=== PATIENT | male | born 1965 | race Caucasian/White ===

== ENCOUNTER 2022-03-08 20:23 | Emergency (ER) | payer OTHER ==
[~2022-03-08] VITALS: Ht 172.7 cm; Wt 90.7 kg
--- NOTE | 2022-03-08 20:40 | NUR ---
TO ER BED 3. [id number] FROM HOME C/O PALPITATIONS X 1 HR AFTER . PT STATES "CHEST FEELS LIKE PRESSURE". HX AFIB. PT IS ALERT AND ORIENTED. RR EVEN AND NON LABORED. CONNECTED TO MONITOR. AWAITING MD BILLINGS
--- NOTE | 2022-03-08 20:55 | NUR ---
BLOOD COLLECTED AND SENT TO LAB
[2022-03-08 21:10] LABS: BASOPHILS # (AUTO) 0.1 K/uL (0.0-0.2); EOSINOPHILS % (AUTO) 3.5 % (0.0-6.0); HEMATOCRIT 43 % (39-51); HEMOGLOBIN 14.5 g/dL (13.5-17.5); LYMPHOCYTES # (AUTO) 1.8 K/uL (0.8-4.8); LYMPHOCYTES % (AUTO) 31.1 % (20.0-44.0); MEAN CORPUSCULAR HGB CONC 34 g/dl (31.0-36.0); MEAN CORPUSCULAR VOLUME 83 fL (80-96); MONOCYTES # (AUTO) 0.4 K/uL (0.1-1.30); MONOCYTES % (AUTO) 7.5 % (2.0-12.0); NEUTROPHILS # (AUTO) 3.2 K/uL (1.8-8.9); NEUTROPHILS % (AUTO) 56.9 % (43.0-81.0); PLATELET COUNT (AUTO) 209 K/uL (150-450); WHITE BLOOD COUNT (AUTO) 5.7 K/uL (4.3-11.0)
--- NOTE | 2022-03-08 21:12 | NUR ---
XRAY AT BEDSIDE
[2022-03-08 21:23] LABS: CARBON DIOXIDE 25 mmol/L (21-32); CHLORIDE 103 mmol/L (98-107); GLUCOSE 196 mg/dL (74-106); POTASSIUM 3.4 mmol/L (3.5-5.1); SODIUM SERUM 137 mmol/L (136-145); UREA NITROGEN, BLOOD 10 mg/dL (7-18)
[2022-03-08] MEDS ORDERED: DILTIAZEM HCL 50 MG IV ONE (21:26)
[2022-03-08] MEDS ORDERED: DILTIAZEM HCL 50 MG IV IV ONE (21:30)
--- NOTE | 2022-03-08 21:44 | NUR ---
IV LINE ESTABLISHED, LHAND 22G
[2022-03-09 00:09] VITALS: BP 140/97
--- NOTE | 2022-03-09 00:09 | NUR ---
IV removed. Catheter intact and site benign. Pressure and 4x4 applied to site. No bleeding noted.
--- NOTE | 2022-03-09 00:09 | NUR ---
Patient discharged to home in stable condition. Written and verbal after care instructions given. Patient verbalizes understanding of instruction.
== END 2022-03-09 00:10 | disposition home or self-care (01) ==
LOC: ER 20:30
DX: I48.91 Unspecified atrial fibrillation (principal); I10 Essential (primary) hypertension; Z88.8 Allergy status to other drugs, medicaments and biological substances
CPT/HCPCS: 99284; 96374; 71045; 93005; 85025; 80048; 36415; 84484 ×2; 83880; J3490

== ENCOUNTER 2022-03-12 16:21 | Emergency (ER) | payer OTHER ==
[~2022-03-12] VITALS: Ht 175.3 cm; Wt 90.7 kg
--- NOTE | 2022-03-12 16:47 | NUR ---
[facility] from [facility], c/o chest discomfort 3 hrs POLICY LOAN CALCULATOR 6/10 pain scale ASA 325 mg and 1 spray nitro 0.4 mg. PT IS A&OX4, HR IN THE 130. PT PLACED ON BEDSIDE MONITOR.
[2022-03-12] MEDS ORDERED: DILTIAZEM HCL 50 MG IV IV ONE (17:00)
[2022-03-12 17:06] LABS: BASOPHILS % (AUTO) 0.7 % (0.0-2.0); EOSINOPHILS % (AUTO) 1.6 % (0.0-6.0); HEMATOCRIT 41 % (39-51); HEMOGLOBIN 13.9 g/dL (13.5-17.5); MEAN CORPUSCULAR HGB CONC 34 g/dl (31.0-36.0); MEAN CORPUSCULAR VOLUME 82 fL (80-96); MONOCYTES # (AUTO) 0.4 K/uL (0.1-1.30); MONOCYTES % (AUTO) 8.1 % (2.0-12.0); NEUTROPHILS # (AUTO) 3.6 K/uL (1.8-8.9); NEUTROPHILS % (AUTO) 70.6 % (43.0-81.0); PLATELET COUNT (AUTO) 161 K/uL (150-450); RED BLOOD CELL COUNT(AUTO) 5.02 MIL/uL (4.5-6.0); WHITE BLOOD COUNT (AUTO) 5.1 K/uL (4.3-11.0)
[2022-03-12] MEDS ORDERED: DILTIAZEM HCL 50 MG IV ONE (17:06)
[2022-03-12 17:18] LABS: CALCIUM, SERUM 8.5 mg/dL (8.5-10.1); CARBON DIOXIDE 26 mmol/L (21-32); CHLORIDE 102 mmol/L (98-107); CREATININE 0.7 mg/dL (0.6-1.3); GLUCOSE 166 mg/dL (74-106); POTASSIUM 3.8 mmol/L (3.5-5.1); SODIUM SERUM 135 mmol/L (136-145); UREA NITROGEN, BLOOD 5 mg/dL (7-18)
--- NOTE | 2022-03-12 19:29 | NUR ---
SBAR GIVEN TO ANALYTICAL STATISTICIAN RN, ALL QUESTIONS ANSWERED.
[2022-03-12] MEDS ORDERED: MAG HYDROX/AL HYDROX/SIMETH 30 ML UDC PO ONE (19:30)
[2022-03-12] MEDS ORDERED: ACETAMINOPHEN ES 500 MG TABLET PO ONE (19:30)
[2022-03-12] MEDS ORDERED: LIDOCAINE VISCOUS 2% UD 15 ML UDC MM ONE (19:30)
[2022-03-12] MEDS ORDERED: MAG HYDROX/AL HYDROX/SIMETH 30 ML UDC ONE (19:40)
[2022-03-12] MEDS ORDERED: ACETAMINOPHEN ES 500 MG TABLET ONE (19:41)
[2022-03-12] MEDS ORDERED: LIDOCAINE VISCOUS 2% UD 15 ML UDC ONE (19:41)
[2022-03-12] MEDS ORDERED: DIGOXIN 0.25 MG TABLET ONE (20:27)
[2022-03-12] MEDS ORDERED: DIGOXIN 0.25 MG TABLET PO ONE (20:30)
--- NOTE | 2022-03-12 21:15 | NUR ---
Patient discharged to home in stable condition. Written and verbal after care instructions given. Patient verbalizes understanding of instruction.IV removed. Catheter intact and site benign. Pressure and 4x4 applied to site. No bleeding noted.
[2022-03-12 21:18] VITALS: BP 153/85
== END 2022-03-12 21:18 | disposition home or self-care (01) ==
LOC: ER 16:21
DX: I48.91 Unspecified atrial fibrillation (principal); R07.89 Other chest pain; I10 Essential (primary) hypertension; I25.2 Old myocardial infarction; F20.9 Schizophrenia, unspecified; Z88.8 Allergy status to other drugs, medicaments and biological substances
CPT/HCPCS: 99284; 96374; 93005 ×2; 71045; 85025; 80048; 36415; 84484 ×2; 85730; 83880; 80320; 80307; J3490; G0480

== ENCOUNTER 2022-03-20 18:55 | Inpatient (IN) | payer OTHER ==
[~2022-03-20] VITALS: Ht 175.3 cm; Wt 93.4 kg
[2022-03-20] MEDS ORDERED: NITROGLYCERIN 0.4 MG/TAB BOTTLE SL ONE (19:00)
[2022-03-20] MEDS ORDERED: ASPIRIN 325 MG TABLET PO ONE (19:00)
--- NOTE | 2022-03-20 19:01 | NUR ---
bibra89 frm schvn w/ c/o chest pain (stabbing like), unprovoked since 1500 was given aspirin 325mg po given tug boat captain. to er bed 9. pt changed to gown and attached to monitor.
--- NOTE | 2022-03-20 19:02 | NUR ---
DR GUAMAN AT BEDSIDE FOR EVAL
--- NOTE | 2022-03-20 19:04 | NUR ---
TECH AT BEDSIDE FOR EKG
--- NOTE | 2022-03-20 19:11 | NUR ---
OK TO HOLD ASPIRIN DOSE PER DR LAW; ALREADY RECEIVED 325MG PATIENT CARE TECHNICIAN
[2022-03-20] MEDS ORDERED: NITROGLYCERIN 0.4 MG/TAB BOTTLE ONE (19:19)
[2022-03-20 20:18] LABS: BASOPHILS # (AUTO) 0.1 K/uL (0.0-0.2); BASOPHILS % (AUTO) 0.8 % (0.0-2.0); EOSINOPHILS % (AUTO) 1.8 % (0.0-6.0); HEMATOCRIT 46 % (39-51); HEMOGLOBIN 15.7 g/dL (13.5-17.5); LYMPHOCYTES # (AUTO) 2.4 K/uL (0.8-4.8); LYMPHOCYTES % (AUTO) 30.7 % (20.0-44.0); MEAN CORPUSCULAR HGB CONC 34 g/dl (31.0-36.0); MEAN CORPUSCULAR VOLUME 82 fL (80-96); MONOCYTES # (AUTO) 0.5 K/uL (0.1-1.30); NEUTROPHILS # (AUTO) 4.8 K/uL (1.8-8.9); NEUTROPHILS % (AUTO) 60.7 % (43.0-81.0); PLATELET COUNT (AUTO) 213 K/uL (150-450); RED BLOOD CELL COUNT(AUTO) 5.57 MIL/uL (4.5-6.0); WHITE BLOOD COUNT (AUTO) 7.9 K/uL (4.3-11.0)
[2022-03-20 20:25] LABS: CALCIUM, SERUM 8.5 mg/dL (8.5-10.1); CARBON DIOXIDE 19 mmol/L (21-32); CHLORIDE 105 mmol/L (98-107); CREATININE 1.5 mg/dL (0.6-1.3); GLUCOSE 239 mg/dL (74-106); POTASSIUM 3.8 mmol/L (3.5-5.1); SODIUM SERUM 140 mmol/L (136-145); UREA NITROGEN, BLOOD 11 mg/dL (7-18)
[2022-03-20] MEDS ORDERED: MORPHINE SULFATE INJ 2 MG/ML DISP.SYRIN IV PRN (21:30)
[2022-03-20] MEDS ORDERED: Z GUARD REMEDY 4 OZ OINT TP PRN (21:30)
[2022-03-20] MEDS ORDERED: HYDROCODONE/APAP 5/325MG TABLET PO PRN (21:30)
[2022-03-20] MEDS ORDERED: TRAZODONE 50 MG TABLET PO PRN (21:30)
[2022-03-20] MEDS ORDERED: NITROGLYCERIN 0.4 MG/TAB BOTTLE SL PRN (21:30)
[2022-03-20] MEDS ORDERED: ONDANSETRON HCL/PF 4 MG/2 ML VIAL IVP PRN (21:30)
[2022-03-20] MEDS ORDERED: MAG HYDROX/AL HYDROX/SIMETH 30 ML UDC PO PRN (21:30)
[2022-03-20] MEDS ORDERED: MAGNESIUM HYDROXIDE 30 ML UDC PO PRN (21:30)
[2022-03-20] MEDS ORDERED: ACETAMINOPHEN 325 MG TABLET PO PRN (21:30)
--- NOTE | 2022-03-20 21:49 | NUR ---
REPORT GIVEN TO BRYSON Zamora RN FOR LETTY
[2022-03-20] MEDS ORDERED: INSULIN REGULAR, HUMAN 100 UNIT/ML 3 ML VIAL SQ PRN (22:00)
[2022-03-20] MEDS ORDERED: DEXTROSE 50%-WATER 50 ML DISP.SYRIN IV PRN (22:00)
[2022-03-20] MEDS ORDERED: IV NS 0.9% 1,000 ML IV PRN (22:00)
--- NOTE | 2022-03-20 22:24 | NUR ---
pt transported to [facility] on security monitor per acls
--- NOTE | 2022-03-20 22:25 | NUR ---
56 yr old male brought to med/surg from ER with chief complaint of chest pain, rule out ACS. Past medical history includes [place], HTN, A-fib, Schizophrenia. On tele monitor reading Atrial fibrillation 80 bpm. Psoriasis all over his body. pictures taken and in chart. IV access to left hand, 18 g running NS at 75 ml/hr. Has morphine 4mg/2ml IVP every 4 hours for pain. Safety precautions in place: Bed in lowest, locked position, side rails up x 2, tray table and call light within reach. Will continue to monitor.
[2022-03-20] MEDS: BLOOD SUGAR DIAGNOSTIC 1 EACH STRIP IN SCH (23:12)
[2022-03-20 23:28] VITALS: BP 137/78
[2022-03-21] VITALS: BP 134/83
[2022-03-21 04:00] VITALS: BP 112/69
[2022-03-21 06:44] LABS: BASOPHILS % (AUTO) 0.5 % (0.0-2.0); EOSINOPHILS % (AUTO) 2.4 % (0.0-6.0); HEMATOCRIT 40 % (39-51); HEMOGLOBIN 13.6 g/dL (13.5-17.5); LYMPHOCYTES % (AUTO) 37.2 % (20.0-44.0); MEAN CORPUSCULAR HGB CONC 34 g/dl (31.0-36.0); MEAN CORPUSCULAR VOLUME 83 fL (80-96); MONOCYTES # (AUTO) 0.4 K/uL (0.1-1.30); MONOCYTES % (AUTO) 7.7 % (2.0-12.0); NEUTROPHILS # (AUTO) 2.8 K/uL (1.8-8.9); NEUTROPHILS % (AUTO) 52.2 % (43.0-81.0); PLATELET COUNT (AUTO) 174 K/uL (150-450); RED BLOOD CELL COUNT(AUTO) 4.89 MIL/uL (4.5-6.0); WHITE BLOOD COUNT (AUTO) 5.4 K/uL (4.3-11.0)
--- NOTE | 2022-03-21 07:20 | NUR ---
PARK INTERPRETIVE RANGER OPENING NOTES RECEIVED PT SITTING IN BED. A/O X 3. ON RA WITH NO SIGNS OF SOB OR LABORED BREATHING. COOPERATIVE AND ABLE TO MAKE NEEDS KNOWN. MENTIONS BEING WORRIED ABOUT BELONGINGS LEFT IN [facility]. IV ACCESS LEFT HAND #18G RUNNING NS AT 75 ML/HR AND AND LEFT AC #18G SL, BOTH PATENT AND INTACT. SAFETY PRECAUTIONS IN PLACE. BED IN LOWEST, LOCKED POSITION, SIDE RAILS UP X3, CALL LIGHT AND TRAY TABLE WITHIN REACH. WILL CONTINUE TO MONITOR.
[2022-03-21] MEDS ORDERED: PANTOPRAZOLE 40 MG TABLET.DR PO SCH (07:30)
[2022-03-21 08:05] LABS: CALCIUM, SERUM 9.3 mg/dL (8.5-10.1); CREATININE 0.9 mg/dL (0.6-1.3); MAGNESIUM 1.7 mg/dL (1.8-2.4); PHOSPHORUS 6.1 mg/dL (2.5-4.9); POTASSIUM 3.9 mmol/L (3.5-5.1)
--- NOTE | 2022-03-21 08:09 | NUR ---
PARTS ORDER AND STOCK CLERK NOTE: PATIENT LYING IN BED. A/O X 3, PLEASANT AND ABLE TO MAKE NEEDS KNOWN. IV ACCESS LEFT HAND 18 G, PATENT AND INTACT, RUNNING NS AT 75 ML/HR. TELE READS ATRIAL FIB 72 BPM. MORPHINE 4MG/2ML IVP HELPS THE CHEST PAIN. SAFETY PRECAUTIONS MAINTAINED: BED IN LOWEST, LOCKED POSITION, SIDE RAILS UP X 2, CALL LIGHT AND TRAY TABLE WITHIN REACH. wILL ENDORSE TO NEXT SHIFT FOR LETTY.
[2022-03-21] MEDS: BLOOD SUGAR DIAGNOSTIC 1 EACH STRIP IN SCH ×3 (08:25→17:36)
[2022-03-21 08:36] VITALS: BP 146/92
[2022-03-21] MEDS ORDERED: APIX5TAB PO (08:59)
[2022-03-21] MEDS ORDERED: TRAZ150T75 PO (08:59)
[2022-03-21] MEDS ORDERED: METO25TA20 PO (08:59)
[2022-03-21] MEDS ORDERED: LISI20TA30 PO (08:59)
[2022-03-21] MEDS ORDERED: LISINOPRIL (20MG) 20 MG TABLET PO SCH (09:00)
[2022-03-21] MEDS ORDERED: CT SWABBABLE VALVE TRANS SET 1 EA INFUS.SET MC ONE (09:07)
[2022-03-21] MEDS ORDERED: IOHEXOL-350 100 ML VIAL IV ONE (09:07)
[2022-03-21] MEDS ORDERED: IV NS 0.9% 250 ML IV ONE (09:07)
[2022-03-21] MEDS ORDERED: METOPROLOL TARTRATE INJ 5 MG/5 ML AMPUL ONE ×2 (09:07→09:40)
[2022-03-21] MEDS ORDERED: NITROGLYCERIN 0.4 MG/TAB BOTTLE ONE (09:07)
[2022-03-21] MEDS: METOPROLOL TARTRATE INJ 5 MG/5 ML AMPUL IVP PRN ×4 (09:25→09:40)
[2022-03-21 09:27] LABS: CHOLESTEROL 102 mg/dL (<200); HDL CHOLESTEROL 30 mg/dL (40-60); LDL 52 mg/dL (0-99); TRIGLYCERIDES 169 mg/dL (30-150)
[2022-03-21] MEDS ORDERED: NITROGLYCERIN 0.4 MG/TAB BOTTLE SL ONE (09:30)
[2022-03-21] MEDS ORDERED: METOPROLOL TARTRATE INJ 5 MG/5 ML AMPUL IVP ONE (09:30)
--- NOTE | 2022-03-21 10:00 | NUR ---
ms rn patient went down for cta of heart,all needs attended.
[2022-03-21] MEDS: APIXABAN 5 MG TABLET PO SCH ×2 (11:13→17:48)
[2022-03-21] MEDS: METOPROLOL TARTRATE 25 MG TABLET PO SCH ×2 (11:20→17:45)
[2022-03-21] MEDS: Magnesium 1GM/D5W 100ML PREMIX 100 ML IV SCH ×2 (11:23→13:39)
[2022-03-21 11:57] VITALS: BP 131/98
[2022-03-21 16:38] VITALS: BP 131/93
--- NOTE | 2022-03-21 16:50 | NUR ---
SW faxed clinicals to [employer] TEL:[phone] fax:[phone] for voluntary psychiatric treatment at [facility] [[facility] [place] [address] FAX:[phone]] as pt. stated they want to return and continue their psychiatric treatment. .
--- NOTE | 2022-03-21 17:36 | NUR ---
RN NOTES GLUCOSE LEVEL AT 121. INSULIN NOT ADMINISTERED PER SLIDING SCALE.
[2022-03-21] MEDS ORDERED: QUETIAPINE FUMARATE 100 MG TABLET PO SCH (18:00)
--- NOTE | 2022-03-21 18:23 | NUR ---
NAILHEAD PUNCHER CLOSING NOTES PT AWAKE, SITTING IN BED. A/O X3. STABLE ON RA WITH NO SIGNS OF SOB OR LABORED BREATHING. COOPERATIVE AND ABLE TO MAKE NEEDS KNOWN. CLEARED FOR DISCHARGE BY DR. VÍCTOR HERNANDEZ AND DR. WILEY. TELE MONITOR REMOVED. IV ACCESS RIGHT HAND #18G, SL, PATENT AND INTACT. PT TOLERATED PRESCRIBED MEDICATIONS WELL. SAFETY PRECAUTIONS MAINTAINED. BED IN LOWEST, LOCKED POSITION, SIDE RAILS UP X3, CALL LIGHT AND TRAY TABLE WITHIN REACH. WILL ENDORSE TO ERP MANAGER ANY LETTY.
--- NOTE | 2022-03-21 19:26 | NUR ---
RN OPENING NOTES RECEIVED PT IN BED, AWAKE, GETTING UP FOR RESTROOM. AOx4, ABLE TO MAKE NEEDS KNOWN. ON RA AND TOLERATING WELL. NO SOB NOTED. NO S/SX OF RESPIRATORY DISTRESS NOTED. IV ACCESS IN LEFT HAND #18G. IV IS INTACT, PATENT, AND FLUSHING WELL. TELE MONITOR REMOVED PER DAY NURSE. PER DAY NURSE, MAYE, WILL GIVE REPORT TO FACILITY. PATIENT AWARE OF DISCHARGE AWAITING TRANSPORTATION. SAFETY PRECAUTIONS IN PLACE: BED IN LOWEST, LOCKED POSITION, SIDERAILS UPx2, AND BRAKES ON. TABLE AND CALL LIGHT WITHIN REACH. ALL NEEDS MET AT THIS TIME.
[2022-03-21 20:00] VITALS: BP 139/95
--- NOTE | 2022-03-21 20:15 | NUR ---
DISCHARGE NOTES PT LEFT WITH [employer] @2015 TO [facility]. REPORT GIVEN TO FACILITY PERSONNEL, BUD CALI RN. AOx4, ABLE TO MAKE NEEDS KNOWN. ALL BELONGINGS ACCOUNTED FOR. TELE MONITOR REMOVED. IV ACCESS REMOVED. BELONGINGS ACCOUNTED FOR. DISCHARGE PAPERWORK SIGNED. EDUCATION PROVIDED.
== END 2022-03-21 20:00 | DRG 302 ==
LOC: ER 19:47 → TELE 21:29
PROVIDERS: ADMIT Nurse Practitioner Acute Care
DX: I25.10 Atherosclerotic heart disease of native coronary artery without angina pectoris (principal); N17.0 Acute kidney failure with tubular necrosis; I48.20 Chronic atrial fibrillation, unspecified; Z20.822 Contact with and (suspected) exposure to COVID-19; I25.2 Old myocardial infarction; I10 Essential (primary) hypertension; Z86.73 Personal history of transient ischemic attack (TIA), and cerebral infarction without residual deficits; F25.9 Schizoaffective disorder, unspecified; Z88.8 Allergy status to other drugs, medicaments and biological substances; Z79.01 Long term (current) use of anticoagulants; Z79.899 Other long term (current) drug therapy; Z87.891 Personal history of nicotine dependence; Z90.49 Acquired absence of other specified parts of digestive tract; Z68.31 Body mass index [BMI] 31.0-31.9, adult; E66.9 Obesity, unspecified; E11.65 Type 2 diabetes mellitus with hyperglycemia; Z86.74 Personal history of sudden cardiac arrest; F10.11 Alcohol abuse, in remission; F15.21 Other stimulant dependence, in remission
CPT/HCPCS: 36415; 71045-TC; 75574; 80048-TC; 80061-TC; 82962-TC; 83735-TC; 83880; 84100-TC; 84484-TC; 85025-TC; 93307-TC; C9803; G0378; J1815; J2270; J3475; J3490; J7030; J7050; Q9967

== ENCOUNTER 2022-04-12 16:00 | Inpatient (IN) | payer MEDICARE, OTHER ==
[~2022-04-12] VITALS: Ht 175.3 cm; Wt 93.4 kg
[~2022-04-12 16:00] MED LIST: APIX5TAB PO; LISI20TA30 PO; METO25TA20 PO; TRAZ150T75 PO
--- NOTE | 2022-04-12 16:17 | NUR ---
BIB RA 889 FROM [facility],WOKE UP DIZZY AND FEELING CONFUSED AT 8 AM. TO ER BED 5, HOOKED TO MONITOR, VSS. AAOx4. BREATHING EVEN AND UNLABORED. NO WEAKNESS BILATERALLY. AWAITING MD BILLINGS
--- NOTE | 2022-04-12 16:57 | NUR ---
DR LIMA AT BEDSIDE
[2022-04-12 17:16] LABS: BASOPHILS % (AUTO) 0.6 % (0.0-2.0); EOSINOPHILS % (AUTO) 2.8 % (0.0-6.0); HEMATOCRIT 42 % (39-51); HEMOGLOBIN 14.2 g/dL (13.5-17.5); LYMPHOCYTES # (AUTO) 1.6 K/uL (0.8-4.8); LYMPHOCYTES % (AUTO) 21.4 % (20.0-44.0); MEAN CORPUSCULAR HGB CONC 34 g/dl (31.0-36.0); MEAN CORPUSCULAR VOLUME 82 fL (80-96); MONOCYTES # (AUTO) 0.5 K/uL (0.1-1.30); NEUTROPHILS # (AUTO) 5.1 K/uL (1.8-8.9); NEUTROPHILS % (AUTO) 68.2 % (43.0-81.0); PLATELET COUNT (AUTO) 183 K/uL (150-450); RED BLOOD CELL COUNT(AUTO) 5.14 MIL/uL (4.5-6.0); WHITE BLOOD COUNT (AUTO) 7.5 K/uL (4.3-11.0)
[2022-04-12 17:29] LABS: CALCIUM, SERUM 8.7 mg/dL (8.5-10.1); CARBON DIOXIDE 28 mmol/L (21-32); CHLORIDE 104 mmol/L (98-107); CREATININE 0.9 mg/dL (0.6-1.3); GLUCOSE 143 mg/dL (74-106); POTASSIUM 3.5 mmol/L (3.5-5.1); SODIUM SERUM 137 mmol/L (136-145); UREA NITROGEN, BLOOD 7 mg/dL (7-18)
--- NOTE | 2022-04-12 17:38 | NUR ---
RAPID COVID SWAB DONE AND SENT TO LAB
[2022-04-12 17:40] LABS: ALANINE AMINOTRANSFERASE 27 U/L (12-78); ALBUMIN 3.6 g/dL (3.4-5.0); ALCOHOL, BLOOD < 3 mg/dL (0-0); ALKALINE PHOSPHATASE 81 U/L (46-116); ASPARTATE AMINOTRANSFERASE 21 U/L (15-37); BILIRUBIN,DIRECT 0.1 mg/dL (0.0-0.2); BILIRUBIN,TOTAL 0.6 mg/dL (0.2-1.0)
[2022-04-12] MEDS ORDERED: BENZ1TAB7 PO (18:03)
[2022-04-12] MEDS ORDERED: RISP2TAB85 PO (18:03)
[2022-04-12] MEDS ORDERED: QUET100T PO (18:03)
--- NOTE | 2022-04-12 18:05 | NUR ---
URINE SAMPLE COLLECTED AND SENT TO LAB
[2022-04-12 18:51] LABS: BILIRUBIN,URINE NEGATIVE (NEGATIVE); COLOR,URINE YELLOW (YELLOW); LEUKOCYTE ESTERASE ,URINE NEGATIVE (NEGATIVE); NITRITE, URINE NEGATIVE (NEGATIVE); PROTEIN,URINE NEGATIVE (NEGATIVE); UGLUCOSE NEGATIVE (NEGATIVE); UROBILINOGEN,URINE 0.2 EU/dL (0.2)
--- NOTE | 2022-04-12 19:16 | NUR ---
ENDORSEMENT GIVEN TO MARSHALL BOYD FOR LETTY
[2022-04-12] MEDS ORDERED: MAG HYDROX/AL HYDROX/SIMETH 30 ML UDC PO PRN (22:00)
[2022-04-12] MEDS ORDERED: ZOLPIDEM TARTRATE 5 MG TABLET PO PRN (22:00)
[2022-04-12] MEDS ORDERED: MAGNESIUM HYDROXIDE 30 ML UDC PO PRN (22:00)
[2022-04-12] MEDS ORDERED: ONDANSETRON HCL/PF 4 MG/2 ML VIAL IVP PRN (22:00)
[2022-04-12] MEDS ORDERED: Z GUARD REMEDY 4 OZ OINT TP PRN (22:00)
--- NOTE | 2022-04-12 22:50 | NUR ---
PT GOING TO ROOM 326-2 REPORT GIVEN TO RR
[2022-04-12 23:05] VITALS: BP 149/88
--- NOTE | 2022-04-12 23:12 | NUR ---
PT TRANSFERRED TO 326-2 PER ACLS PROTOCOL.
--- NOTE | 2022-04-13 00:34 | NUR ---
ENDORSED BY AMY RN AT ER. RECEIVED PATIENT FROM ER VIA GURNEY ACCOMPANIED BY NURSE AND COREMAKER APPRENTICE. BREATHING ON ROOM AIR, TOLERATING WELL. WITH IV ACCESS AT LEFT AC. PERFORMED HEAD-TO-TOE ASSESSMENT. CHECKED AND RECORDED BELONGINGS. ORIENTED TO ROOM SET-UP. VERBALIZED UNDERSTANDING. SAFETY PRECAUTIONS INITIATED, BED RAILS UPX2, BED LOCKED AND LOWERED. WILL MONITOR THE PATIENT THROUGHOUT THE SHIFT.
[2022-04-13] MEDS: ACETAMINOPHEN 325 MG TABLET PO PRN ×2 (03:51→18:28)
--- NOTE | 2022-04-13 03:57 | NUR ---
PATIENT COMPLAINED OF DIZZINESS AND HEADACHE. GIVEN TYLENOL 650MG. WILL CONTINUE TO MONITOR.
--- NOTE | 2022-04-13 06:52 | NUR ---
PATIENT VERBALIZED RELIEVED OF PAIN.
--- NOTE | 2022-04-13 07:17 | NUR ---
RN CLOSING NOTES PATIENT IS ASLEEP. BREATHING ON ROOM AIR, TOLERATING WELL. WITH IV ACCESS AT LEFT AC. NO COMPLAINS OF PAIN OR HEADACHE AT THIS TIME. SAFETY PRECAUTIONS INITIATED, BED RAILS UPX2, BED LOCKED AND LOWERED. WILL ENDORSE TO NEXT SHIFT RN FOR LETTY.
--- NOTE | 2022-04-13 07:20 | NUR ---
MS RN RECEIVED ON BED, AWAKE,ALERT,ORIENTED X4,NOT IN ANY FORM OF DISTRESS, RESPIRATIONS EVEN AND UNLABORED,NO SOB NOTED, LUNGS ARE CLEAR,ABDOMEN SOFT,POSITIVE BOWEL SOUNDS,DENIES PAIN AT THIS TIME,ALL NEEDS ATTENDED.
[2022-04-13 07:29] LABS: BASOPHILS % (AUTO) 0.6 % (0.0-2.0); EOSINOPHILS % (AUTO) 4.7 % (0.0-6.0); HEMATOCRIT 41 % (39-51); HEMOGLOBIN 13.5 g/dL (13.5-17.5); LYMPHOCYTES # (AUTO) 1.7 K/uL (0.8-4.8); LYMPHOCYTES % (AUTO) 33.6 % (20.0-44.0); MEAN CORPUSCULAR HGB CONC 33 g/dl (31.0-36.0); MEAN CORPUSCULAR VOLUME 81 fL (80-96); MONOCYTES # (AUTO) 0.5 K/uL (0.1-1.30); MONOCYTES % (AUTO) 9.8 % (2.0-12.0); NEUTROPHILS # (AUTO) 2.5 K/uL (1.8-8.9); NEUTROPHILS % (AUTO) 51.3 % (43.0-81.0); PLATELET COUNT (AUTO) 169 K/uL (150-450); WHITE BLOOD COUNT (AUTO) 4.9 K/uL (4.3-11.0)
[2022-04-13 07:41] LABS: CALCIUM, SERUM 8.3 mg/dL (8.5-10.1); CREATININE 0.8 mg/dL (0.6-1.3); MAGNESIUM 1.8 mg/dL (1.8-2.4)
[2022-04-13 08:00] VITALS: BP 135/93
[2022-04-13 08:00] LABS: THYROID STIMULATING HORMONE 1.225 uIU/mL (0.358-3.74)
[2022-04-13] MEDS ORDERED: PANTOPRAZOLE 40 MG VIAL IV SCH (09:00)
[2022-04-13] MEDS: BENZTROPINE MESYLATE (1 MG) 1 MG TABLET PO SCH (10:01)
[2022-04-13] MEDS: LISINOPRIL (20MG) 20 MG TABLET PO SCH (10:01)
[2022-04-13] MEDS: METOPROLOL TARTRATE 25 MG TABLET PO SCH ×2 (10:01→17:20)
[2022-04-13] MEDS: APIXABAN 5 MG TABLET PO SCH ×2 (10:06→20:23)
[2022-04-13 16:00] VITALS: BP 126/92
[2022-04-13] MEDS: QUETIAPINE FUMARATE 100 MG TABLET PO SCH (17:20)
--- NOTE | 2022-04-13 19:29 | NUR ---
ms rn on bed, no distress noted.
--- NOTE | 2022-04-13 19:30 | NUR ---
MS RN OPENING NOTES RECEIVED PATIENT LAYING IN BED AWAKE. A/O X4. BREATHING EVEN AND NON-LABORED ON ROOM AIR. NOT IN APPARENT DISTRESS. C/O THROBBING CHEST PAIN RADIATING TO LEFT SIDE. HAS LEFT ANTECUBITAL IV ACCESS #20G AND SALINE LOCKED. NO S/S OF INFILTRATION NOTED. SAFETY PRECAUTIONS IN PLACE: BED LOW AND LOCKED, SIDE RAILS UP X2, CALL LIGHT WITHIN REACH. WILL CONTINUE POC.
--- NOTE | 2022-04-13 19:48 | NUR ---
MS RN NOTES PATIENT C/O THROBBING CHEST PAIN STARTING FROM THE RIGHT SIDE RADIATING TO LEFT SIDE AND SHOULDER. NOTIFIED Cira SMALLS AND ORDERED THE FF. READ BACK, NOTED AND CARRIED OUT. - STAT EKG - STAT CBC, BMP, MG, TROPONIN - NITRO SL 0.4 MG PRN - ASA 325 MG X1 PO - ASA 81 MG PO DAILY
[2022-04-13 20:00] VITALS: BP 117/96
[2022-04-13] MEDS ORDERED: NITROGLYCERIN 0.4 MG/TAB BOTTLE SL PRN (20:00)
[2022-04-13] MEDS ORDERED: ASPIRIN 325 MG TABLET PO ONE (20:00)
[2022-04-13 20:25] LABS: BASOPHILS % (AUTO) 0.6 % (0.0-2.0); EOSINOPHILS % (AUTO) 4.1 % (0.0-6.0); HEMATOCRIT 42 % (39-51); HEMOGLOBIN 14.1 g/dL (13.5-17.5); MEAN CORPUSCULAR HGB CONC 33 g/dl (31.0-36.0); MEAN CORPUSCULAR VOLUME 83 fL (80-96); MONOCYTES # (AUTO) 0.5 K/uL (0.1-1.30); MONOCYTES % (AUTO) 7.9 % (2.0-12.0); NEUTROPHILS # (AUTO) 3.2 K/uL (1.8-8.9); NEUTROPHILS % (AUTO) 53.4 % (43.0-81.0); PLATELET COUNT (AUTO) 158 K/uL (150-450); WHITE BLOOD COUNT (AUTO) 5.9 K/uL (4.3-11.0)
--- NOTE | 2022-04-13 20:40 | NUR ---
MS RN NOTES PATIENT VERBALIZED HIS CHEST PAIN IS BETTER AFTER 1 DOSE OF NTG 0.4MG SL.
[2022-04-13 22:10] LABS: CALCIUM, SERUM 8.5 mg/dL (8.5-10.1); MAGNESIUM 1.8 mg/dL (1.8-2.4)
[2022-04-13] MEDS: IV NS 0.9% 1,000 ML IV PRN (22:23)
--- NOTE | 2022-04-14 06:35 | NUR ---
MS RN CLOSING NOTES PATIENT LAYING IN BED ASLEEP, EASY TO AROUSE. ABLE TO VERBALIZE NEEDS. NO CARDIAC OR RESPIRATORY DISTRESS NOTED. AFEBRILE. STABLE THROUGHOUT THE SHIFT. HAS LEFT ANTECUBITAL IV ACCESS #20G WITH NS RUNNING AT 75 ML/HR. INTACT, PATENT AND FLUSHING. ALL DUE MEDS GIVEN AND NEEDS ATTENDED. OFFERED SKIN CARE BUT PATIENT REFUSED AND VERBALIZED HE IS DRY. SAFETY PRECAUTIONS MAINTAINED. WILL ENDORSE TO NEXT SHIFT FOR LETTY.
[2022-04-14 06:44] LABS: BASOPHILS % (AUTO) 0.7 % (0.0-2.0); EOSINOPHILS % (AUTO) 4.1 % (0.0-6.0); HEMATOCRIT 38 % (39-51); LYMPHOCYTES # (AUTO) 1.8 K/uL (0.8-4.8); LYMPHOCYTES % (AUTO) 38.5 % (20.0-44.0); MEAN CORPUSCULAR HGB CONC 34 g/dl (31.0-36.0); MEAN CORPUSCULAR VOLUME 82 fL (80-96); MONOCYTES # (AUTO) 0.4 K/uL (0.1-1.30); MONOCYTES % (AUTO) 9.1 % (2.0-12.0); NEUTROPHILS # (AUTO) 2.2 K/uL (1.8-8.9); NEUTROPHILS % (AUTO) 47.6 % (43.0-81.0); PLATELET COUNT (AUTO) 153 K/uL (150-450); RED BLOOD CELL COUNT(AUTO) 4.68 MIL/uL (4.5-6.0); WHITE BLOOD COUNT (AUTO) 4.6 K/uL (4.3-11.0)
[2022-04-14 08:00] VITALS: BP 115/89
[2022-04-14 08:00] LABS: CALCIUM, SERUM 8.5 mg/dL (8.5-10.1); CARBON DIOXIDE 26 mmol/L (21-32); CREATININE 0.9 mg/dL (0.6-1.3); GLUCOSE 115 mg/dL (74-106); MAGNESIUM 1.8 mg/dL (1.8-2.4); SODIUM SERUM 142 mmol/L (136-145); UREA NITROGEN, BLOOD 9 mg/dL (7-18)
[2022-04-14] MEDS: LISINOPRIL (20MG) 20 MG TABLET PO SCH (09:00)
[2022-04-14] MEDS: METOPROLOL TARTRATE 25 MG TABLET PO SCH ×2 (09:00→17:00)
--- NOTE | 2022-04-14 10:00 | NUR ---
MS RN OPENING NOTES pt a/0 x4. able to make needs known. no signs of pain/discomfort. pt on room air tolerating well. pt has iv access 20 g. iv intact, patent and flushing well. no s/s infiltration. all safety measures in place. call light within reach.bed locked and in lowest position. side rails up x2.
[2022-04-14] MEDS: ASPIRIN 81 MG TAB.CHEW PO SCH (10:31)
[2022-04-14] MEDS: BENZTROPINE MESYLATE (1 MG) 1 MG TABLET PO SCH (10:32)
[2022-04-14] MEDS: PANTOPRAZOLE 40 MG TABLET.DR PO SCH (10:32)
[2022-04-14] MEDS: APIXABAN 5 MG TABLET PO SCH ×2 (10:33→20:56)
--- NOTE | 2022-04-14 11:35 | NUR ---
jarod note pt's bp is 115/89, hr 59. bassam payton to hold lisinopril Addendum: 04/14/22 at 1904 by DWAIN SARKAR RN md yovany lopez med
--- NOTE | 2022-04-14 12:31 | NUR ---
orthostatic hypotension sitting bp 141/92 hr 52 standing 147/96 hr 86 supine 133/78 hr 56 pt asked for break from iv fluids. said okay to stop fluids
--- NOTE | 2022-04-14 13:52 | NUR ---
rn note asked if neurologist will see patient. md pedroza said neuro consult isnt needed. relayed information to pt
[2022-04-14] MEDS: QUETIAPINE FUMARATE 100 MG TABLET PO SCH (18:30)
[2022-04-14] MEDS: ACETAMINOPHEN 325 MG TABLET PO PRN (19:27)
--- NOTE | 2022-04-14 19:27 | NUR ---
MS RN OPENING NOTES RECEIVED PATIENT IN BED AWAKE. A/O X4. BREATHING EVEN AND NON-LABORED ON ROOM AIR. VERBALIZED HE IS HAVING MILD ANXIETY AND JUST TOOK HIS SEROQUEL. C/O MILD HEADACHE. HAS LEFT ANTECUBITAL IV ACCESS #20G AND SALINE LOCKED. NO S/S OF INFILTRATION NOTED. PATIENT STILL REFUSED TO RESTART HIS IVF NS. INFORMED WE NEED TO TAKE PICTURE OF HIS SKIN ISSUES AND PATIENT AGREED. SAFETY PRECAUTIONS IN PLACE: BED LOW AND LOCKED, SIDE RAILS UP X2, CALL LIGHT WITHIN REACH. WILL CONTINUE POC.
--- NOTE | 2022-04-14 19:29 | NUR ---
rn closing note pt a/0 x4.able to make needs known. pt on room air tolerating.iv intact, patent. no new orders at this time. all safety measures in place. call light within reach.bed locked at lowest position. side rails up x2. endorsed to material handler 1st shift rn for continuity of care.
--- NOTE | 2022-04-14 19:35 | NUR ---
MS RN NOTES PATIENT C/O MILD HEADACHE. PRN TYLENOL GIVEN AND TOLERATED WELL.
[2022-04-14 20:03] VITALS: BP 152/96
[2022-04-14 20:05] VITALS: BP 117/64
[2022-04-14] MEDS: IV NS 0.9% 1,000 ML IV PRN (20:41)
--- NOTE | 2022-04-15 07:07 | NUR ---
MS RN CLOSING NOTES PATIENT IN BED ASLEEP, EASY TO AROUSE. ABLE TO VERBALIZE NEEDS. STABLE THROUGHOUT THE SHIFT. NOT IN CARDIAC OR RESPIRATORY DISTRESS. NO C/O PAIN AT THIS TIME. LEFT ANTECUBITAL IV ACCESS INTACT, PATENT AND FLUSHING. ALL DUE MEDS GIVEN AND NEEDS ATTENDED. SKIN PHOTOS TAKEN AND PATIENT CONFIRMED HE HAS BEEN DIAGNOSED WITH PSORIASIS. SAFETY PRECAUTIONS MAINTAINED. WILL ENDORSE TO NEXT SHIFT FOR LETTY.
--- NOTE | 2022-04-15 07:20 | NUR ---
RN OPENING NOTES RECEIVED PATIENT IN BED, AWAKE, A/O X4, VERBALLY RESPONSIVE NO SIGNS OF ACUTE DISTRESS NOTED. STABLE ON ROOM AIR, NO SOB NOTED, BREATHING EVEN AND UNLABORED. DENIES ANY PAIN AT THIS TIME. NOTED WITH IV ACCESS ON LEFT AC #20G, INTACT. PATIENT REFUSED IVF. SAFETY ,MEASURE IN PLACE, BED IN LOWEST AND LOCKED POSITION, SIDE RAILS UP X2, CALL LIGHT PLACED WITHIN EASY REACH. WILL CONTINUE TO MONITOR PATIENT.
[2022-04-15 08:00] VITALS: BP 151/92
[2022-04-15] MEDS: ASPIRIN 81 MG TAB.CHEW PO SCH (08:18)
[2022-04-15] MEDS: METOPROLOL TARTRATE 25 MG TABLET PO SCH (08:18)
[2022-04-15] MEDS: BENZTROPINE MESYLATE (1 MG) 1 MG TABLET PO SCH (08:18)
[2022-04-15 08:19] VITALS: BP 151/92
[2022-04-15] MEDS: LISINOPRIL (20MG) 20 MG TABLET PO SCH (08:19)
[2022-04-15] MEDS: PANTOPRAZOLE 40 MG TABLET.DR PO SCH (08:21)
[2022-04-15] MEDS: APIXABAN 5 MG TABLET PO SCH (08:21)
[2022-04-15] MEDS ORDERED: ASPI-1169 PO (11:40)
--- NOTE | 2022-04-15 14:35 | NUR ---
SW attempted to conduct assessment but pt was not in his room. SW spoke with nurse who informed SW that pt. had already been picked up. SW was unable to provide resources.
--- NOTE | 2022-04-15 14:40 | NUR ---
DEVELOPMENT VICE PRESIDENT NOTE PATIENT DISCHARGED TO [facility] IN STABLE CONDITION. PATIENT REMAINS AWAKE, A/O X4, VERBALLY RESPONSIVE. NO SIGNS OF ACUTE DISTRESS NOTED. IV ACCESS REMOVED, NO BLEEDING NOTED, PRESSURE DRESSING APPLIED TO SITE. ARM NAME BAND REMOVED. ALL BELONGINGS ACCOUNTED FOR. FORM SIGNED BY PATIENT. EXITCARE FOLDER GIVEN TO PATIENT. HEALTH TEACHINGS AND DISCHARGE INSTRUCTIONS PROVIDED TO PATIENT WITH VERBALIZATION OF UNDERSTANDING. PATIENT LEFT UNIT @1430, [facility]. PATIENT PICKED UP BY [facility]S SCIENTIFIC RESEARCH ASSOCIATE VIA PRIVATE CAR. CN AWARE OF DISCHARGE.
== END 2022-04-15 14:30 | disposition home or self-care (01) | DRG 154 ==
LOC: ER 16:03 → TELE 22:08 → MED 23:50
PROVIDERS: ADMIT Nurse Practitioner Acute Care; ATTEND Student in an Organized Health Care Education/Training Program
DX: H93.13 Tinnitus, bilateral (principal); G93.41 Metabolic encephalopathy; Z86.73 Personal history of transient ischemic attack (TIA), and cerebral infarction without residual deficits; Z98.2 Presence of cerebrospinal fluid drainage device; I10 Essential (primary) hypertension; I48.91 Unspecified atrial fibrillation; Z79.01 Long term (current) use of anticoagulants; Z20.822 Contact with and (suspected) exposure to COVID-19; I25.2 Old myocardial infarction; Z79.899 Other long term (current) drug therapy; R73.03 Prediabetes; Z88.8 Allergy status to other drugs, medicaments and biological substances
CPT/HCPCS: 36415; 70450-TC; 71045-TC; 80048-TC; 80061-TC; 80076-TC; 83735-TC; 84443-TC; 84484-TC; 85025-TC; 85730-TC; 87081-TC; 97116-TC; 97530-TC; C9113; C9803; G0378; G0480; J7030